=== PATIENT | female | born 1985 | race Caucasian/White ===

== ENCOUNTER 2018-06-12 18:28 | Emergency (ER) | payer MEDICAID ==
[~2018-06-12] VITALS: Ht 152.4 cm; Wt 47.6 kg
[~2018-06-12 18:28] MED LIST: HYDR25CA5 PO; MTP25TSR PO
--- OUTSIDE RECORDS SUMMARY | 2018-06-12 18:32 | XMS REPORT | Continuity of Care Document ---
Author Organization Unknown Address Unknown Allergies Active Description Code Type Severity Reaction Onset Reported/Identified Relationship to Patient Clinical Status Yes aspirin Drug Allergy 03/19/2012 Yes penicillins Drug Allergy 03/19/2012 Yes pertusis vacine Drug Allergy 03/19/2012 Medications There is no data. Problems Date Dx Coded Attending Type Code Diagnosis Diagnosed By 03/19/2012 300.00 anxiety 03/19/2012 381.81 EUSTACHIAN TUBE DYSFUNCTION 03/19/2012 625.3 DYSMENORRHEA 03/19/2012 782.1 skin: a rash [as Sx] 03/19/2012 300.00 anxiety 03/19/2012 381.81 EUSTACHIAN TUBE DYSFUNCTION 03/19/2012 625.3 DYSMENORRHEA 03/19/2012 782.1 skin: a rash [as Sx] 03/19/2012 300.00 anxiety 03/19/2012 381.81 EUSTACHIAN TUBE DYSFUNCTION 03/19/2012 625.3 DYSMENORRHEA 03/19/2012 782.1 skin: a rash [as Sx] 03/19/2012 EVELIA KELLY MD 300.00 anxiety 03/19/2012 EVELIA KELLY MD 381.81 EUSTACHIAN TUBE DYSFUNCTION 03/19/2012 EVELIA KELLY MD 625.3 DYSMENORRHEA 03/19/2012 EVELIA KELLY MD 782.1 skin: a rash [as Sx] 06/09/2012 524.62 TMJ pain 06/09/2012 745.5 PATENT FORAMEN OVALE 06/09/2012 784.0 headache 06/09/2012 524.62 TMJ pain 06/09/2012 745.5 PATENT FORAMEN OVALE 06/09/2012 784.0 headache 06/09/2012 EVELIA KELLY MD 524.62 TMJ pain 06/09/2012 EVELIA KELLY MD 745.5 PATENT FORAMEN OVALE 06/09/2012 EVELIA KELLY MD 784.0 headache 08/13/2012 216.9 BENIGN NEOPLASM OF SKIN SITE UNSPECIFIED 08/13/2012 719.41 PAIN IN JOINT INVOLVING SHOULDER REGION 08/13/2012 EVELIA KELLY MD 216.9 BENIGN NEOPLASM OF SKIN SITE UNSPECIFIED 08/13/2012 EVELIA KELLY MD 719.41 PAIN IN JOINT INVOLVING SHOULDER REGION 09/10/2012 EVELIA KELLY MD 787.91 DIARRHEA 09/16/2012 EVELIA KELLY MD 536.8 DYSPEPSIA AND OTHER SPECIFIED DISORDERS OF FUNCTION OF STOMACH Procedures There is no data. Results There is no data. Encounters ACCT No. Visit Date/Time Discharge Status Pt. Type Provider Facility Loc./Unit Complaint [id number] 09/16/2012 16:22:00 09/16/2012 23:59:59 [facility] Outpatient EVELIA KELLY MD [id number] 03/19/2012 09:35:00 03/19/2012 23:59:59 [facility] Outpatient [id number] 08/13/2012 10:07:00 Document Registration [id number] 06/09/2012 09:21:00 Document Registration
--- NOTE | 2018-06-12 18:53 | ED Integumentary General ---
General Chief Complaint: Skin/Wound Problems Stated Complaint: RECEIVING VAC Source: patient History of Present Illness Date Seen by Provider: Jun 12, 2018 Time Seen by Provider: 18:53 Initial Comments 33 yo F presenting from home for a tetanus and diphtheria booster. She states as a child she had a reaction to pertussis component of vaccination so she can not take it. She had a locust thorn go through her shoe and into her toe this afternoon. She called her doctor's office and they recommended she get an updated booster since she was only a few months short of 10 years since last shot. She called around and the ER here was one of the few locations that had the DT only vaccination. She states she already had cleaned the wound on her toe and refused to have it looked at. She states she just needs the vaccination booster only and she will be good to go home. She denies any other complaints. No Fever, chills, nausea, vomiting, abdominal pain, headache, numbness, weakness. Allergies and Home Medications Allergies Coded Allergies: Aspirin (Unverified Allergy, Mild, RASH, 11/26/09) Amoxicillin (Unverified Allergy, Unknown, 11/26/09) Home Medications Hydroxyzine Pamoate 25 Mg Capsule, 25 MG PO Q6H FOR ANXIETY Prescribed by: JEANNE ROCA on 11/27/09 0037 Metoprolol Succinate 25 Mg Tab, 12.5 MG PO DAILY, (Reported) Patient Home Medication List Home Medication List Reviewed: Yes Review of Systems Review of Systems Constitutional: no symptoms reported EENTM: no symptoms reported Respiratory: no symptoms reported Cardiovascular: no symptoms reported Gastrointestinal: no symptoms reported Musculoskeletal: see HPI Skin: see HPI Past Kcrayfm-Kyntlc-Vejbsm Hx Past Med/Social Hx: Reviewed Nursing Past Med/Soc Hx Patient Social History Recent Foreign Travel: No Contact w/Someone Who Travel: No Physical Exam Vital Signs Vital Signs - First Documented 06/12/18 06/12/18 18:50 19:28 Temp 97.7 Pulse 95 Resp 18 B/P (MAP) 118/78 (91) Pulse Ox 100 O2 Delivery Room Air Capillary Refill : General Appearance: WD/WN, no apparent distress Neurologic/Psychiatric: alert, normal mood/affect, oriented x 3 Skin: other (pt refused stating she did not feel it was necessary to look at her puncture wound) Progress/Results/Core Measures Results/Orders My Orders Orders - JYOTI KUMAR MD Tetanus/Diphtheria Inj (Adult) (Tenivac (06/12/18 19:00) Medications Given in ED Current Medications Medications Dose Ordered Sig/Chris Route Start Time Stop Time Status Last Admin Dose Admin Tetanus/ Diphtheria Toxoids 0.5 ml ONCE ONCE IM 06/12/18 19:00 06/12/18 19:01 DC 06/12/18 19:13 0.5 ML Vital Signs/I&O 06/12/18 06/12/18 18:50 19:28 Temp 97.7 Pulse 95 82 Resp 18 12 B/P (MAP) 118/78 (91) 111/70 (84) Pulse Ox 100 O2 Delivery Room Air Room Air Progress Progress Note : Progress Note Patient appeared to be in no distress and declined exam of wound as she states she just needs her tetanus diphtheria booster per her doctor office and then she will go. vaccination was ordered and counseled on general wound care and return precautions. Departure Impression Primary Impression: Puncture wound of foot without foreign body Qualified Codes: S91.339A - Puncture wound without foreign body, unspecified foot, initial encounter Additional Impression: Need for vaccine for Td (tetanus-diphtheria) Disposition: HOME, SELF-CARE Condition: Stable Departure-Patient Inst. Decision time for Depature: 19:15 Referrals: PREM ALBERT MD (PCP/Family) Primary Care Physician Patient Instructions: Diphtheria and Tetanus Toxoids, Wound Care (DC) Add. Discharge Instructions: Follow up with your doctor as needed. Check back for further concerns for infection if having problems with your puncture wound on your foot. All discharge instructions reviewed with patient and/or family. Voiced understanding. JYOTI KUMAR MD Jun 12, 2018 18:53
[2018-06-12] MEDS ORDERED: TETANUS & DIPHTHERIA TOX,ADULT 0.5 ML (TENIVAC) IM ONE (19:00)
[2018-06-12 19:28] VITALS: BP 111/70
== END 2018-06-12 19:28 | disposition home or self-care (01) ==
LOC: EDUNIT# 18:28 → ER FS 18:29
DX: S91.339A Puncture wound without foreign body, unspecified foot, initial encounter (principal); Z88.6 Allergy status to analgesic agent; Z88.0 Allergy status to penicillin; Z23 Encounter for immunization; X58.XXXA Exposure to other specified factors, initial encounter
CPT/HCPCS: 90714; 99284

== ENCOUNTER 2018-07-23 02:18 | Emergency (ER) | payer MEDICAID ==
[~2018-07-23] VITALS: Ht 152.4 cm; Wt 49.0 kg
--- OUTSIDE RECORDS SUMMARY | 2018-07-23 02:22 | XMS REPORT ---
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, Active 861931577 Problem Lactose intolerance E73.9 Active 756802480 Problem Tachycardia R00.0 May, Active 7520015 Problem Palpitation R00.2 Active 95731012 Problem 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 July, Active 61065020 Problem Family history of connective tissue disease Z82.69 July, Active Problem SVT (supraventricular tachycardia) I47.1 May, Active 8911243 Problem PFO (patent foramen ovale) Q21.1 July, Active 067546488 ALLERGIES No Information ENCOUNTERS Encounter Location Date Diagnosis [address] [address] May, Celiac disease K90.0 and Anxiety disorder F41.9 [facility] [address] [place] [address] Jan, [facility] [id number] [place] [address] Jan, [facility] [id number] [place] [address] Jan, [facility] [id number] [place] [address] Jan, [facility] [id number] [place] [address] Jan, [facility] [id number] [place] [address] Jan, [facility] [address] [facility] [id number] [address] Jun, [facility] [address] [facility] [id number] [address] Jun, [facility] [address] [facility] [id number] [address] Dec, [facility] [address] [facility] [id number] [place] [address] Nov, [facility] [address] [facility] [id number] [address] Aug, [facility] [address] [facility] [id number] [address] Aug, [facility] [address] [place] [address] Aug, [facility] [address] [place] [address] Aug, [facility] [id number] [address] July, [facility] [address] [place] [address] Jun, [facility] [id number] [address] Mar, IMMUNIZATIONS No Known Immunizations SOCIAL HISTORY Never Assessed REASON FOR VISIT [facility] [place] PLAN OF CARE VITAL SIGNS MEDICATIONS Unknown Medications RESULTS No Results PROCEDURES No Known procedures INSTRUCTIONS MEDICATIONS ADMINISTERED No Known Medications MEDICAL (GENERAL) HISTORY Type Description Date Medical History Celiac disease Medical History Palpitation Medical History Anxiety disorder Medical History Tachycardia Medical History Lactose intolerance Medical History PFO (patent foramen ovale) Medical History SVT (supraventricular tachycardia) Medical History Family history of connective tissue disease Medical History Atypical migraine Medical History Left ventricular noncompaction Surgical History tonsillectomy and adenoidectomy
--- OUTSIDE RECORDS SUMMARY | 2018-07-23 02:22 | XMS REPORT ---
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, Active 285822970 Problem Lactose intolerance E73.9 Active 680492373 Problem Tachycardia R00.0 May, Active 5622046 Problem Palpitation R00.2 Active 00168971 Problem 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 July, Active 12873195 Problem Family history of connective tissue disease Z82.69 July, Active Problem SVT (supraventricular tachycardia) I47.1 May, Active 4680036 Problem PFO (patent foramen ovale) Q21.1 July, Active 998910267 ALLERGIES No Information ENCOUNTERS Encounter Location Date Diagnosis [address] [address] May, Celiac disease K90.0 and Anxiety disorder F41.9 [facility] [address] [place] [address] Jan, [facility] [id number] [place] [address] Jan, [facility] [id number] [place] [address] Jan, [facility] [id number] [place] [address] Jan, [facility] [id number] [place] [address] Jan, [facility] [id number] [place] [address] Jan, [facility] [address] [facility] [id number] [address] Jun, [facility] [address] [facility] [id number], [place] [address] Jun, [facility] [address] [facility] [id number], [place] [address] Dec, [facility] [address] [facility] [id number], [place] [address] Nov, [facility] [address] [facility] [id number], [place] [address] Aug, [facility] [address] [facility] [id number], [place] [address] Aug, [facility] [address] [address] Aug, [facility] [address], [place] [address] Aug, [facility] [id number], [place] [address] July, [facility] [address] [address] Jun, [facility] [id number], [place] [address] Mar, IMMUNIZATIONS No Known Immunizations SOCIAL HISTORY Never Assessed REASON FOR VISIT [facility] [place] [place] PLAN OF CARE VITAL SIGNS MEDICATIONS Unknown [...]
--- OUTSIDE RECORDS SUMMARY | 2018-07-23 02:22 | XMS REPORT | Continuity of Care Document ---
[...] Status Pt. Type Provider Facility Loc./Unit Complaint [id number] 09/16/2012 16:22:00 09/16/2012 23:59:59 [facility] Outpatient EVELIA KELLY MD [id number] 03/19/2012 09:35:00 03/19/2012 23:59:59 [facility] Outpatient [id number] 08/13/2012 10:07:00 Document Registration [id number] 06/09/2012 09:21:00 Document Registration
[2018-07-23] MEDS ORDERED: NS IV 1000 ML 1,000 ML IV ONE (02:40)
[2018-07-23 03:13] LABS: HEMOGLOBIN 13.3 G/DL (11.5-16.0); MEAN CORPUSCULAR HEMOGLOBIN 28 PG (25-34); WHITE BLOOD COUNT 4.6 10^3/uL (4.3-11.0)
[2018-07-23 03:14] LABS: BASOPHILS % (AUTO) 0 % (0-10); EOSINOPHILS % (AUTO) 1 % (0-10); HEMATOCRIT 41 % (35-52); LYMPHOCYTES % (AUTO) 8 % (12-44); MEAN CORPUSCULAR HGB CONC 32 G/DL (32-36); MEAN CORPUSCULAR VOLUME 87 FL (80-99); MEAN PLATELET VOLUME 10.1 FL (7.4-10.4); MONOCYTES % (AUTO) 5 % (0-12); NEUTROPHILS % (AUTO) 85 % (42-75); PLATELET COUNT 167 10^3/uL (130-400); RED CELL DISTRIBUTION WIDTH 11.9 % (10.0-14.5)
[2018-07-23 03:15] LABS: LYMPHOCYTES # (AUTO) 0.4 X 10^3 (1.0-4.0); MONOCYTES # (AUTO) 0.3 X 10^3 (0.0-1.0); NEUTROPHILS # (AUTO) 3.9 X 10^3 (1.8-7.8)
[2018-07-23 03:25] LABS: CLARITY,URINE CLEAR; COLOR,URINE YELLOW; GLUCOSE, URINE (UA) NEGATIVE (NEGATIVE); KETONES,URINE TRACE (NEGATIVE); NITRITE,URINE NEGATIVE (NEGATIVE); PROTEIN,URINE NEGATIVE (NEGATIVE)
[2018-07-23 03:26] LABS: BACTERIA,URINE TRACE /HPF; BILIRUBIN,URINE NEGATIVE (NEGATIVE); LEUKOCYTE ESTERASE ,URINE NEGATIVE (NEGATIVE); SQUAMOUS EPITHELIAL CELL,UR 0-2 /HPF; UROBILINOGEN,URINE 0.2 MG/DL (NORMAL); WBC,URINE RARE /HPF
[2018-07-23 03:43] LABS: BAND NEUTROPHILS 12 %; BASOPHILS % (MANUAL) 1 %; EOSINOPHILS % (MANUAL) 0 %; LYMPHOCYTES % (MANUAL) 6 %; MONOCYTES % (MANUAL) 2 %; NEUTROPHILS % (MANUAL) 79 %
[2018-07-23 03:54] LABS: BUN/CREATININE RATIO 22; CALCIUM 8.6 MG/DL (8.5-10.1); CARBON DIOXIDE 18 MMOL/L (21-32); CHLORIDE 101 MMOL/L (98-107); CREATININE SERUM 0.64 MG/DL (0.60-1.30); GFR ESTIMATED > 60; GLUCOSE 113 MG/DL (70-105); MAGNESIUM 1.7 MG/DL (1.8-2.4); SODIUM 138 MMOL/L (135-145)
[2018-07-23 03:55] LABS: ALANINE AMINOTRANSFERASE 17 U/L (0-55); ALBUMIN 4.7 GM/DL (3.2-4.5); ALKALINE PHOSPHATASE 60 U/L (40-136); BILIRUBIN,TOTAL 0.4 MG/DL (0.1-1.0); LIPASE 30 U/L (8-78); TOTAL PROTEIN 6.9 GM/DL (6.4-8.2)
--- NOTE | 2018-07-23 04:01 | ED Abdominal Pain ---
General Chief Complaint: Abdominal/GI Problems Stated Complaint: DIGESTIVE PROBLEMS Nursing Triage Note: PT. REPORTED THAT HER SKIN ON HER BACK AND LEGS WERE HURTING THAT IT STARTED YESTERDAY AND TONIGHT SHE WAS RUNNING A LOW GRADE TEMP. SHE C/O ABD PAIN, CRAMPING NAUSEA, DIARREHA AND BLOOD IN HER STOOL. PT. REPORTED 5 DAYS AGO SHE HAD BLOOD IN HER STOOL BUT HAD BEEN CONSTIPATED. SHE ALSO C/O BURPING. Sepsis Screen: No Definite Risk Source of Information: Patient Exam Limitations: No Limitations History of Present Illness Date Seen by Provider: July 23, 2018 Time Seen by Provider: 02:28 Initial Comments This 33-year-old young lady presents to the emergency room with complaints of abdominal discomfort and cramping accompanied by excessive belching, frequent stools, and blood streaking in her stools. Temperature has been elevated today but less than 100. Symptoms started yesterday. She states the skin on her legs and her back felt painful yesterday as well. She has had a small amount of diarrhea with her frequent stools. She is nauseated but has not vomited. Her cramping and discomfort worsens with bowel movements. She does have celiac disease but states she is currently compliant with a gluten-free diet. She is afebrile at present. She denies and denies sexual activity. Patient has had exposure to flood lee and cattle in recent days. Allergies and Home Medications Allergies Coded Allergies: Aspirin (Unverified Allergy, Mild, RASH, 11/26/09) Amoxicillin (Unverified Allergy, Unknown, 11/26/09) Home Medications Hydroxyzine Pamoate 25 Mg Capsule, 25 MG PO Q6H FOR ANXIETY Prescribed by: JEANNE ROCA on 11/27/09 0037 Metoprolol Succinate 25 Mg Tab, 12.5 MG PO DAILY, (Reported) Patient Home Medication List Home Medication List Reviewed: Yes Review of Systems Review of Systems Constitutional: no symptoms reported EENTM: No Symptoms Reported Respiratory: No Symptoms Reported Cardiovascular: No Symptoms Reported Gastrointestinal: See HPI Genitourinary: No Symptoms Reported Musculoskeletal: no symptoms reported Skin: see HPI Psychiatric/Neurological: No Symptoms Reported Endocrine: No Symptoms Reported Hematologic/Lymphatic: No Symptoms Reported Past Xzcqcts-Kgaeik-Hjvsjr Hx Past Med/Social Hx: Reviewed and Corrections made Patient Social History 2nd Hand Smoke Exposure: No Recent Foreign Travel: No Contact w/Someone Who Travel: No Recent Infectious Disease Expo: No Recent Hopitalizations: No Physical Abuse: No Sexual Abuse: No Mistreated: No Fear: No Seasonal Allergies Seasonal Allergies: No Past Medical History Surgeries: Yes (wisdom teeth) Tonsillectomy Respiratory: No Cardiac: No Neurological: No : No Last Menstrual Period: July 22, 2018 Genitourinary: No Gastrointestinal: Yes (celiac disease) Hemorrhoids Musculoskeletal: No Endocrine: No HEENT: No Cancer: No Psychosocial: Yes Anxiety Integumentary: No Blood Disorders: No Physical Exam Vital Signs Vital Signs - First Documented 07/23/18 02:26 Temp 99.3 Pulse 109 Resp 16 B/P (MAP) 125/78 (94) Pulse Ox 98 O2 Delivery Room Air Capillary Refill : Less Than 3 Seconds Height/Weight/BMI Height: 5'0" Weight: 108lbs. oz. 48.638068ek; BMI Method:Stated General Appearance: WD/WN, no apparent distress HEENT: PERRL/EOMI, normal ENT inspection, pharynx normal Neck: normal inspection Respiratory: lungs clear, normal breath sounds, no respiratory distress, no accessory muscle use Cardiovascular: no edema, no murmur, tachycardia Gastrointestinal: normal bowel sounds, non tender, soft Rectal: normal exam, normal rectal tone; No hemorrhoids, No mass, No t enderness; other (no stool was present on FARSHAD for Hemoccult testing.) Extremities: normal inspection, no pedal edema Neurologic/Psychiatric: superintendent electric power II-XII nml as tested, no motor/sensory deficits, alert, normal mood/affect, oriented x 3 Skin: normal color, warm/dry Progress/Results/Core Measures Results/Orders Lab Results Laboratory Tests Test 07/23/18 02:54 07/23/18 03:00 Range/Units White Blood Count 4.6 4.3-11.0 10^3/uL Red Blood Count 4.72 4.35-5.85 10^6/uL Hemoglobin 13.3 11.5-16.0 G/DL Hematocrit 41 35-52 % Mean Corpuscular Volume 87 80-99 FL Mean Corpuscular Hemoglobin 28 25-34 PG Mean Corpuscular Hemoglobin Concent 32 32-36 G/DL Red Cell Distribution Width 11.9 10.0-14.5 % Platelet Count 167 130-400 10^3/uL Mean Platelet Volume 10.1 7.4-10.4 FL Neutrophils (%) (Auto) 85 H 42-75 % Lymphocytes (%) (Auto) 8 L 12-44 % Monocytes (%) (Auto) 5 0-12 % Eosinophils (%) (Auto) 1 0-10 % Basophils (%) (Auto) 0 0-10 % Neutrophils # (Auto) 3.9 1.8-7.8 X 10^3 Lymphocytes # (Auto) 0.4 L 1.0-4.0 X 10^3 Monocytes # (Auto) 0.3 0.0-1.0 X 10^3 Eosinophils # (Auto) 0.0 0.0-0.3 10^3/uL Basophils # (Auto) 0.0 0.0-0.1 10^3/uL Neutrophils % (Manual) 79 % Lymphocytes % (Manual) 6 % Monocytes % (Manual) 2 % Eosinophils % (Manual) 0 % Basophils % (Manual) 1 % Band Neutrophils 12 % Sodium Level 138 135-145 MMOL/L Potassium Level 4.0 3.6-5.0 MMOL/L Chloride Level 101 98-107 MMOL/L Carbon Dioxide Level 18 L 21-32 MMOL/L Anion Gap 19 H 5-14 MMOL/L Blood Urea Nitrogen 14 7-18 MG/DL Creatinine 0.64 0.60-1.30 MG/DL Estimat Glomerular Filtration Rate > 60 BUN/Creatinine Ratio 22 Glucose Level 113 H 70-105 MG/DL Calcium Level 8.6 8.5-10.1 MG/DL Corrected Calcium 8.5-10.1 MG/DL Magnesium Level 1.7 L 1.8-2.4 MG/DL Total Bilirubin 0.4 0.1-1.0 MG/DL Aspartate Amino Transf (AST/SGOT) 16 5-34 U/L Alanine Aminotransferase (ALT/SGPT) 17 0-55 U/L Alkaline Phosphatase 60 40-136 U/L Total Protein 6.9 6.4-8.2 GM/DL Albumin 4.7 H 3.2-4.5 GM/DL Lipase 30 8-78 U/L Serum Test, Qualitative NEGATIVE NEGATIVE Urine Color YELLOW Urine Clarity CLEAR Urine pH 6.0 5-9 Urine Specific [place] 1.010 L 1.016-1.022 Urine Protein NEGATIVE NEGATIVE Urine Glucose (UA) NEGATIVE NEGATIVE Urine Ketones TRACE H NEGATIVE Urine Nitrite NEGATIVE NEGATIVE Urine Bilirubin NEGATIVE NEGATIVE Urine Urobilinogen 0.2 NORMAL MG/DL Urine Leukocyte Esterase NEGATIVE NEGATIVE Urine RBC (Auto) NEGATIVE NEGATIVE Urine RBC NONE /HPF Urine WBC RARE /HPF Urine Squamous Epithelial Cells 0-2 /HPF Urine Crystals NONE /LPF Urine Bacteria TRACE /HPF Urine Casts NONE /LPF Urine Mucus NONE /LPF Urine Culture Indicated NO My Orders Orders - DAFNE LUNA MD Cbc With Automated Diff (07/23/18 02:39) Comprehensive Metabolic Panel (07/23/18 02:39) Hcg,Qualitative Serum (07/23/18 02:39) Lipase (07/23/18 02:39) Magnesium (07/23/18 02:39) Ua Culture If Indicated (07/23/18 02:39) Ed Iv/Invasive Line Start (07/23/18 02:39) Ns Iv 1000 Ml (Sodium Chloride 0.9%) (07/23/18 02:40) Manual Differential (07/23/18 02:54) Medications Given in ED Current Medications Medications Dose Ordered Sig/Chris Route Start Time Stop Time Status Last Admin Dose Admin Sodium Chloride 1,000 ml @ 0 mls/hr Q0M ONCE IV 07/23/18 02:40 07/23/18 02:42 DC 07/23/18 02:40 1,000 MLS/HR Vital Signs/I&O 07/23/18 02:26 Temp 99.3 Pulse 109 Resp 16 B/P (MAP) 125/78 (94) Pulse Ox 98 O2 Delivery Room Air Blood Pressure Mean: 94 Progress Progress Note : Progress Note Patient declined medications to treat pain, cramping, and nausea. She did however want IV fluids. A liter of IV normal saline was administered. Rectal exam revealed no hemorrhoids, fissures, or evidence of bleeding. Departure Impression Primary Impression: Abdominal cramping Additional Impressions: Nausea Hematochezia Disposition: 01 HOME, SELF-CARE Condition: Improved Departure-Patient Inst. Decision time for Depature: 04:05 Referrals: SELFALIS MD (PCP) Primary Care Physician Patient Instructions: Bloody Stools, Adult (DC) Add. Discharge Instructions: Follow-up with your primary care provider within the next 1-2 weeks. Call the office this morning for an appointment. Discuss stool cultures and/or colonoscopy. Use the Zofran (ondansetron) dissolved under your tongue every 4 hours as needed for nausea and vomiting. You may take Tylenol (acetaminophen) up to 650 mg every 6 hours as needed for pain. Return to the emergency room if you have worsening symptoms. All discharge instructions reviewed with patient and/or family. Voiced understanding. Copy Copies To 1: SELF,DAFNE SHARP MD, MD July 23, 2018 04:01
[2018-07-23] MEDS ORDERED: RX-ONDANSETRON 4 MG ODT (ZOFRAN) PPK #4 SL STA (04:09)
[2018-07-23 04:20] VITALS: BP 120/76
== END 2018-07-23 04:28 | disposition home or self-care (01) ==
LOC: EDUNIT# 02:18 → ER FS 02:20
DX: K92.1 Melena (principal); R11.0 Nausea; F41.9 Anxiety disorder, unspecified; Z88.6 Allergy status to analgesic agent; Z88.1 Allergy status to other antibiotic agents; Z90.89 Acquired absence of other organs
CPT/HCPCS: 36415; 80053; 81000; 83690; 83735; 84703; 85007; 85027; 96360

== ENCOUNTER 2019-02-07 01:56 | Emergency (ER) | payer MEDICAID ==
[~2019-02-07] VITALS: Ht 154 cm; Wt 54.2 kg
--- NOTE | 2019-02-07 02:34 | ED EENT ---
History of Present Illness General Chief Complaint: Oral/Throat Problems Stated Complaint: SORE THROAT Nursing Triage Note: PT COMPLAINING OF A SORE THROAT THAT STARTED YESTERDAY History of Present Illness Date Seen by Provider: Feb 07, 2019 Time Seen by Provider: 02:33 Initial Comments as above ST started yesterday no fever, no congestion or cough no earache also had left lower tooth pulled 2 d ago, site doing fine, on pain med prn Allergies and Home Medications Allergies Coded Allergies: aspirin (Unverified Allergy, Mild, RASH, 11/26/09) Pertussis Vaccines (Verified Allergy, Unknown, 07/23/18) amoxicillin (Unverified Allergy, Unknown, 11/26/09) nickel (Verified Allergy, Unknown, 07/23/18) Home Medications Hydroxyzine Pamoate 25 Mg Capsule, 25 MG PO Q6H FOR ANXIETY Prescribed by: JEANNE ROCA on 11/27/09 0037 Metoprolol Succinate 25 Mg Tab, 12.5 MG PO DAILY, (Reported) Patient Home Medication List Home Medication List Reviewed: Yes Review of Systems Review of Systems Constitutional: No fever Eyes: No Symptoms Reported Ears: No Symptoms Reported Nose: no symptoms reported Mouth: other (see HPI) Throat: painful swallowing Respiratory: no symptoms reported Gastrointestinal: no symptoms reported Past Hjzdtfm-Jnmtbm-Ekirxu Hx Patient Social History Alcohol Use: Denies Use Recreational Drug Use: No 2nd Hand Smoke Exposure: No Recent Foreign Travel: No Contact w/Someone Who Travel: No Recent Infectious Disease Expo: No Recent Hopitalizations: No Physical Abuse: No Sexual Abuse: No Mistreated: No Seasonal Allergies Seasonal Allergies: No Past Medical History Surgeries: Yes (wisdom teeth) Tonsillectomy Respiratory: No Cardiac: No Neurological: No Genitourinary: No Gastrointestinal: Yes (celiac disease) Hemorrhoids Musculoskeletal: No Endocrine: No HEENT: No Cancer: No Psychosocial: Yes Anxiety Integumentary: No Blood Disorders: No Physical Exam Vital Signs Vital Signs - First Documented 02/07/19 02:05 Temp 36.5 Pulse 91 Resp 16 B/P (MAP) 116/69 (85) Pulse Ox 99 O2 Delivery Room Air Height, Weight, BMI Height: 5'0" Weight: 108lbs. oz. 48.417089hp; 22.00 BMI Method:Stated General Appearance: WD/WN, other (no distress) Eyes: bilateral eye PERRL, bilateral eye EOMI Ears: bilateral ear TM normal Nose: normal inspection Mouth/Throat: pharynx normal, pharynx swelling (very minimal on R); No tonsillar swelling, No trismus, No uvula swelling; other (tooth extraction site looks fine) Neck: supple Cardiovascular: regular rate, rhythm Respiratory: lungs clear Gastrointestinal: non tender, soft Progress/Results/Core Measures Results/Orders Lab Results Laboratory Tests Test 02/07/19 02:06 Range/Units Group A Streptococcus Screen NEGATIVE NEGATIVE My Orders Orders - ESTELA AVALOS MD Rapid Strep A Screen (02/07/19 02:04) Rapid Strep A Screen (02/07/19 02:09) Vital Signs/I&O 02/07/19 02:05 Temp 36.5 Pulse 91 Resp 16 B/P (MAP) 116/69 (85) Pulse Ox 99 O2 Delivery Room Air Blood Pressure Mean: 85 POS Progress Progress Note : Progress Note strep neg Departure Impression Primary Impression: Pharyngitis Qualified Codes: J02.9 - Acute pharyngitis, unspecified Disposition: 01 HOME, SELF-CARE Condition: Stable Departure-Patient Inst. Decision time for Depature: 02:39 Referrals: ALIS MONREAL MD (PCP/Family) Primary Care Physician Patient Instructions: Viral Pharyngitis (DC) Scripts Prednisone (Prednisone) 20 Mg Tab 40 MG PO DAILY, #6 TAB 0 Refills Prov: ESTELA AVALOS MD 02/07/19 ESTELA AVAOLS MD Feb 07, 2019 02:34 POS
[2019-02-07] MEDS ORDERED: PRD20T PO (02:39)
[2019-02-07 02:42] VITALS: BP 116/69
--- OUTSIDE RECORDS SUMMARY | 2019-03-04 16:39 | XMS REPORT | Continuity of Care Document ---
Author Organization Unknown Address Unknown Phone Unavailable Allergies Active Description Code Type Severity Reaction Onset Reported/Identified Relationship to Patient Clinical Status Yes aspirin [id number] Drug Allergy Mild RASH 11/26/2009 Yes amoxicillin [id number] Drug Aller gy Unknown N/A 11/26/2009 Yes aspirin Drug Allergy 03/19/2012 Yes penicillins Drug Allergy 03/19/2012 Yes pertusis vacine Drug Allergy 03/19/2012 Yes nickel [id number] Drug Allergy Unknown N/A 07/23/2018 Yes Pertussis Vaccines [id number] Drug Allergy Unknown N/A 07/23/2018 Medications There is no data. Problems Date Dx Coded Attending Type Code Diagnosis Diagnosed By 03/19/2012 300.00 anxiety 03/19/2012 381.81 EUS TACHIAN TUBE DYSFUNCTION 03/19/2012 625.3 DYSM ENORRHEA 03/19/2012 782.1 skin : a rash [as Sx] 03/19/2012 300.00 anxiety 03/19/2012 381.81 EUS TACHIAN TUBE DYSFUNCTION 03/19/2012 625.3 DYSM ENORRHEA 03/19/2012 782.1 skin : a rash [as Sx] 03/19/2012 300.00 anxiety 03/19/2012 381.81 EUS TACHIAN TUBE DYSFUNCTION 03/19/2012 625.3 DYSM ENORRHEA 03/19/2012 782.1 skin : a rash [as Sx] 03/19/2012 EVELIA KELLY MD 300.00 anxiety 03/19/2012 EVELIA KELLY MD 381.81 EUSTACHIAN TUBE DYSFUNCTION 03/19/2012 EVELIA KELLY MD 625.3 DYSMENORRHEA 03/19/2012 EVELIA KELLY MD 782.1 skin: a rash [as Sx] 06/09/2012 524.62 TMJ pain 06/09/2012 745.5 [place] NT FORAMEN OVALE 06/09/2012 784.0 headache 06/09/2012 524.62 TMJ pain 06/09/2012 745.5 [place] NT FORAMEN OVALE 06/09/2012 784.0 headache 06/09/2012 EVELIA KELLY MD 524.62 TMJ pain 06/09/2012 EVELIA KELLY MD 745.5 PATENT FORAMEN OVALE 06/09/2012 EVELIA KELLY MD 784.0 headache 08/13/2012 216.9 SAMRA GN NEOPLASM OF SKIN SITE UNSPECIFIED 08/13/2012 719.41 [place] N IN JOINT INVOLVING SHOULDER REGION 08/13/2012 EVELIA KELLY MD 216.9 BENIGN NEOPLASM OF SKIN SITE UNSPECIFIED 08/13/2012 EVELIA KELLY MD 719.41 PAIN IN JOINT INVOLVING SHOULDER REGION 09/10/2012 EVELIA KELLY MD 787.91 DIARRHEA 09/16/2012 EVELIA KELLY MD 536.8 DYSPEPSIA AND OTHER SPECIFIED DISORDERS OF FUNCTION OF STOMACH 06/12/2018 JYOTI KUMAR MD, Ot S91.339A PUNCTURE WOUND WITHOUT FOREIGN BODY, UNS 06/12/2018 JYOTI KUMAR MD Ot X58.XXXA EXPOSURE TO OTHER SPECIFIED FACTORS, INI 06/12/2018 JYOTI KUMAR MD Ot Z23 ENCOUNTER FOR IMMUNIZATION 06/12/2018 JYOTI KUMAR MD Ot Z88.0 ALLERGY STATUS TO PENICILLIN 06/12/2018 JYOTI KUMAR MD, Ot Z88.6 ALLERGY STATUS TO ANALGESIC AGENT STATUS 06/16/2018 JYOTI KUMAR MD, Ot S91.339A PUNCTURE WOUND WITHOUT FOREIGN BODY, UNS 06/16/2018 JYOTI KUMAR MD Ot X58.XXXA EXPOSURE TO OTHER SPECIFIED FACTORS, INI 06/16/2018 JYOTI KUMAR MD Ot Z23 ENCOUNTER FOR IMMUNIZATION 06/16/2018 JYOTI KUMAR MD, Ot Z88.0 ALLERGY STATUS TO PENICILLIN 06/16/2018 JYOTI KUMAR MD Ot Z88.6 ALLERGY STATUS TO ANALGESIC AGENT STATUS 07/23/2018 DAFNE LUNA MD Ot F41.9 ANXIETY DISORDER, UNSPECIFIED 07/23/2018 DAFNE LUNA MD Ot K92.1 MELENA 07/23/2018 DAFNE LUNA MD Ot R10.9 UNSPECIFIED ABDOMINAL PAIN 07/23/2018 CHERYL LEVY, DAFNE T Ot R11.0 NAUSEA 07/23/2018 DAFNE LUNA MD T Ot Z88.1 ALLERGY STATUS TO OTHER ANTIBIOTIC AGENT 07/23/2018 CHERYL LEVY, DAFNE T Ot Z88.6 ALLERGY STATUS TO ANALGESIC AGENT STATUS 07/23/2018 DAFNE LUNA MD T Ot Z90.89 ACQUIRED ABSENCE OF OTHER ORGANS 07/28/2018 DAFNE LUNA MD T Ot F41.9 ANXIETY DISORDER, UNSPECIFIED 07/28/2018 DAFNE LUNA MD T Ot K92.1 MELENA 07/28/2018 DAFNE LUNA MD T Ot R10.9 UNSPECIFIED ABDOMINAL PAIN 07/28/2018 DAFNE LUNA MD T Ot R11.0 NAUSEA 07/28/2018 DAFNE LUNA MD T Ot Z88.1 ALLERGY STATUS TO OTHER ANTIBIOTIC AGENT 07/28/2018 DAFNE LUNA MD T Ot Z88.6 ALLERGY STATUS TO ANALGESIC AGENT STATUS 07/28/2018 DAFNE LUNA MD T Ot Z90.89 ACQUIRED ABSENCE OF OTHER ORGANS 07/30/2018 DAFNE LUNA MD T Ot F41.9 ANXIETY DISORDER, UNSPECIFIED 07/30/2018 CHERYL LEVY, DAFNE T Ot K92.1 MELENA 07/30/2018 DAFNE LUNA MD T Ot R10.9 UNSPECIFIED ABDOMINAL PAIN 07/30/2018 DAFNE LUNA MD T Ot R11.0 NAUSEA 07/30/2018 DAFNE LUNA MD T Ot Z88.1 ALLERGY STATUS TO OTHER ANTIBIOTIC AGENT 07/30/2018 DAFNE LUNA MD T Ot Z88.6 ALLERGY STATUS TO ANALGESIC AGENT STATUS 07/30/2018 DAFNE LUNA MD T Ot Z90.89 ACQUIRED ABSENCE OF OTHER ORGANS 02/10/2019 ESTELA AVALOS MD Ot F41. 9 ANXIETY DISORDER, UNSPECIFIED 02/10/2019 ESTELA AVALOS MD Ot J02. 9 ACUTE PHARYNGITIS, UNSPECIFIED 02/10/2019 ESTELA AVALOS MD Ot Z88. 0 ALLERGY STATUS TO PENICILLIN 02/10/2019 ESTELA AVALOS MD Ot Z88. 6 ALLERGY STATUS TO ANALGESIC AGENT STATUS 02/10/2019 ESTELA AVALOS MD Ot Z88. 7 ALLERGY STATUS TO SERUM AND VACCINE STAT 02/10/2019 ESTELA AVALOS MD Ot Z88. 8 ALLERGY STATUS TO OTH DRUG/MEDS/BIOL SUB 02/10/2019 ESTELA AVALOS MD, Ot Z90. 89 ACQUIRED ABSENCE OF OTHER ORGANS Procedures There is no data. Results Test Result Range Complete blood count (CBC) with automate d white blood cell (WBC) differential - 07/23/18 02:54 Blood leukocytes automated count (number/volume) 4.6 10*3/uL 4.3-11.0 Blood erythrocytes automated count (number/volume) 4.72 10*6/uL 4.35-5.85 Venous blood hemoglobin measurement (mass/volume) 13.3 g/dL 11.5-16.0 Blood hematocrit (volume fraction) 41 % 35-52 Automated erythrocyte mean corpuscular volume 87 [ foz_us] 80-99 Automated erythrocyte mean corpuscular h emoglobin (mass per erythrocyte) 28 pg 25-34 Automated erythrocyte mean corpuscular h emoglobin concentration measurement (mass/volume) 32 g/dL 32-36 Automated erythrocyte distribution width ratio 11. 9 % 10.0- 14.5 Automated blood platelet count (count/volume) 167 10*3/uL 130-400 Automated blood platelet mean volume measurement 10.1 [foz_us] 7.4-10.4 Automated blood neutrophils/100 leukocytes 85 % 42-75 Automated blood lymphocytes/100 leukocytes 8 % 12-44 Blood monocytes/100 leukocytes 5 % 0-12 Automated blood eosinophils/100 leukocytes 1 % 0-10 Automated blood basophils/100 leukocytes 0 % 0-10 Blood neutrophils automated count (number/volume) 3.9 10*3 1.8-7.8 Blood lymphocytes automated count (number/volume) 0.4 10*3 1.0-4.0 Blood monocytes automated count (number/volume) 0. 3 10*3 0.0-1.0 Automated eosinophil count 0.0 10*3/uL 0 .0-0.3 Automated blood basophil count (count/volume) 0.0 10*3/uL 0.0-0.1 Serum or plasma choriogonadotropin (preg kandy test) detection - 07/23/18 02:54 Serum or plasma choriogonadotropin ( test) de tection NEGATIVE NEGATIVE Blood manual differential performed dete ction - 07/23/18 02:54 Blood monocytes/100 leukocytes 2 % NRG Manual blood segmented neutrophils/100 leukocytes 79 % NRG Blood band neutrophils/100 leukocytes 12 % NRG Manual blood lymphocytes/100 leukocytes 6 % NRG Manual eosinophils/100 leukocytes in nose 0 % NRG Manual blood basophils/100 leukocytes 1 % NRG Comprehensive metabolic panel - 07/23/18 02:54 Serum or plasma sodium measurement (moles/volume) 138 mmol/L 135-145 Serum or plasma potassium measurement (moles/volume) 4.0 mmol/L 3.6-5.0 Serum or plasma chloride measurement (moles/volume) 101 mmol/L 98-107 Carbon dioxide 18 mmol/L 21-32 Serum or plasma anion gap determination (moles/volume) 19 mmol/L 5-14 Serum or plasma urea nitrogen measurement (mass/volume ) 14 mg/dL 7-18 Serum or plasma creatinine measurement (mass/volume) 0.64 mg/dL 0.60-1.30 Serum or plasma urea nitrogen/creatinine mass ratio 22 NRG Serum or plasma creatinine measurement w ith calculation of estimated glomerular filtration rate > NRG Serum or plasma glucose measurement (mass/volume) 113 mg/dL 70-105 Serum or plasma calcium measurement (mass/volume) 8.6 mg/dL 8.5-10.1 Serum or plasma total bilirubin measurement (mass/volu me) 0.4 mg/dL 0.1-1.0 Serum or plasma alkaline phosphatase stephanie surement (enzymatic activity/volume) 60 U/L 40-136 Serum or plasma aspartate aminotransfera se measurement (enzymatic activity/volume) 16 U/L 5-34 Serum or plasma alanine aminotransferase measurement (enzymatic activity/volume) 17 U/L 0-55 Serum or plasma protein measurement (mass/volume) 6.9 g/dL 6.4-8.2 Serum or plasma albumin measurement (mass/volume) 4.7 g/dL 3.2-4.5 Magnesium - 07/23/18 02:54 Magnesium 1.7 mg/dL 1.8-2.4 Lipase - 07/23/18 02:54 Lipase 30 U/L 8-78 Complete urinalysis with reflex to cultu re - 07/23/18 03:00 Urine color determination YELLOW NRG Urine clarity determination CLEAR NR G Urine pH measurement by test strip 6.0 5-9 Specific gravity of urine by test strip 1.010 1.016-1.022 Urine protein assay by test strip, semi-quantitative NEGATIVE NEGATIVE Urine glucose detection by automated test strip NE GATIVE NEGATIVE Erythrocytes detection in urine sediment by light micr oscopy NEGATIVE NEGATIVE Urine ketones detection by automated test strip TR GASTON NEGATIVE Urine nitrite detection by test strip NEGATIVE NEGATIVE Urine total bilirubin detection by test strip NEGA TIVE NEGATIVE Urine urobilinogen measurement by automated test strip (mass/volume) 0.2 mg/dL NORMAL Urine leukocyte esterase detection by dipstick NEG ATIVE NEGATIVE Automated urine sediment erythrocyte cou nt by microscopy (number/high power field) NONE NRG Automated urine sediment leukocyte count by microscopy (number/high power field) RARE NRG Bacteria detection in urine sediment by light microsco py TRACE NRG Squamous epithelial cells detection in u rine sediment by light microscopy 0-2 NRG Crystals detection in urine sediment by light microsco py NONE NRG Casts detection in urine sediment by light microscopy NONE NRG Mucus detection in urine sediment by light microscopy NONE NRG Complete urinalysis with reflex to culture NO NRG TSH w/ FREE T4 - 12/11/18 12:19 TSH 1.30 mIU/L NRG T4, FREE 1.1 ng/dL 0.8-1.8 LIPID PANEL - 12/11/18 12:19 CHOLESTEROL, TOTAL 163 mg/dL <200 HDL CHOLESTEROL 64 mg/dL >50 TRIGLYCERIDES 31 mg/dL <150 LDL-CHOLESTEROL 90 mg/dL (calc) NRG CHOL/HDLC RATIO 2.5 (calc) <5.0 NON HDL CHOLESTEROL 99 mg/dL (calc) <130 CMP - 12/11/18 12:19 GLUCOSE 84 mg/dL 65-99 UREA NITROGEN (BUN) 12 mg/dL 7-25 CREATININE 0.59 mg/dL 0.50-1.10 eGFR NON-AFR. ESTONIAN 119 mL/min/1.73m2 > OR = 60 eGFR 138 mL/min/1.73m2 > OR = 60 BUN/CREATININE RATIO NOT APPLICABLE (calc) 6-22 SODIUM 138 mmol/L 135-146 POTASSIUM 4.0 mmol/L 3.5-5.3 CHLORIDE 105 mmol/L 98-110 CARBON DIOXIDE 25 mmol/L 20-32 CALCIUM 9.7 mg/dL 8.6-10.2 PROTEIN, TOTAL 6.7 g/dL 6.1-8.1 ALBUMIN 4.5 g/dL 3.6-5.1 GLOBULIN 2.2 g/dL (calc) 1.9-3.7 ALBUMIN/GLOBULIN RATIO 2.0 (calc) 1.0-2. 5 BILIRUBIN, TOTAL 0.6 mg/dL 0.2-1.2 ALKALINE PHOSPHATASE 47 U/L 33-115 AST 15 U/L 10-30 ALT 15 U/L 6-29 CBC - 12/11/18 12:19 WHITE BLOOD CELL COUNT 4.2 Thousand/uL 3 .8-10.8 RED BLOOD CELL COUNT 4.90 Million/uL 3.8 0-5.10 HEMOGLOBIN 13.7 g/dL 11.7-15.5 HEMATOCRIT 42.7 % 35.0-45.0 MCV 87.1 fL 80.0-100.0 MCH 28.0 pg 27.0-33.0 MCHC 32.1 g/dL 32.0-36.0 RDW 11.8 % 11.0-15.0 PLATELET COUNT 193 Thousand/uL 140-400 MPV 10.6 fL 7.5-12.5 ABSOLUTE NEUTROPHILS 2596 cells/uL 1500- 7800 ABSOLUTE LYMPHOCYTES 1168 cells/uL 850-3 900 ABSOLUTE MONOCYTES 328 cells/uL 200-950 ABSOLUTE EOSINOPHILS 88 cells/uL 15-500 ABSOLUTE BASOPHILS 21 cells/uL 0-200 NEUTROPHILS 61.8 % NRG LYMPHOCYTES 27.8 % NRG MONOCYTES 7.8 % NRG EOSINOPHILS 2.1 % NRG BASOPHILS 0.5 % NRG Streptococcus pyogenes antigen detection - 02/07/19 02:06 Streptococcus pyogenes antigen detection NEGATIVE NEGATIVE Bacterial throat culture - 02/07/19 02:0 6 Bacterial throat culture NBS NRG Encounters ACCT No. Visit Date/Time Discharge Status Pt. Type Provider Facility Loc./Unit Complaint [id number] 09/16/2012 16:22:00 09/16/2012 23:59: 59 CLS Outpatient EVELIA KELLY MD [id number] 03/19/2012 09:35:00 03/19/2012 23:59: 59 CLS Outpatient [id number] 08/13/2012 10:07:00 Document Registration [id number] 06/09/2012 09:21:00 Document Registration [id number] 07/23/2018 14:15:00 07/23/2018 23:59:[address] [facility] Outpatient SELF, ALIS Bone [facility] [id number] 12/11/2018 12:15:00 Document Registration [id number] 02/07/2019 01:58:00 02:43:00 DIS Outpatient BAILEY LEVY, ESTELA [facility] SORE THROAT [id number] 07/23/2018 02:20:00 04:28:00 DIS Emergency CHERYL LEVY, DAFNE Grullon [facility] DIGESTIVE [facility]BL [facility] [id number] 06/12/2018 18:29:00 19:28:00 DIS Emergency JOSÉ LEVY, JYOTI Powell [facility] FS RECEIVING VAC
--- OUTSIDE RECORDS SUMMARY | 2019-03-04 16:39 | XMS REPORT ---
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 Dec, 016 Active 302044723 Problem Lactose intolerance E73.9 Active 222151198 Problem Tachycardia R00.0 May, Active 80513 08 Problem Palpitation R00.2 Active 64674784 Problem 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 July, Active 55974290 Problem Family history of connective tissue disease Z82 .69 July, Active Problem SVT (supraventricular tachycardia) I47.1 r, 2015 Active 0769011 Problem PFO (patent foramen ovale) Q21.1 July, Active 069569853 ALLERGIES Substance Reaction Event Type Date Status Aspirin Unknown Drug Allergy Jun, Active Penicillins Unknown Non Drug Allergy Jun, Active Pertusis Vacine Unknown Non Drug Allergy Jun, Active ENCOUNTERS Encounter Location Date Diagnosis [address] [address] July, Gastroenteritis K52.[address] [address] May, Celiac disease K90.0 and Anxiety disorde r F41.9 [facility] [address] [facility] [id number] [address] [place] [phone] Jan, [facility] [address] [facility] [id number] [address] [place] [phone] Jan, [facility] [address] [facility] [id number] [address] [place] [phone] Jan, [facility] [address] [id number] [address] [place] [phone] Jan, [facility] [address] [id number] [address] [place] [phone] Jan, [facility] [address] [id number] [address] [place] [phone] Jan, [facility] [address] [id number] [address] [place] [phone] Jun, [facility] [address] [id number] [address] [place] [phone] Jun, [facility] [address] [id number] [address] [place] [phone] Dec, [facility] [address] [id number] [address] [place] [phone] Nov, [facility] [address] [id number] [address] [place] [phone] Aug, [facility] [address] [id number] [address] [place] [phone] Aug, [facility] [address] [id number] [address] [place] [phone] Aug, [facility] [address] [id number] [address] [place] [phone] Aug, [facility] [address] [id number] [address] [place] [phone] July, [facility] [address] [id number] [address] [place] [phone] Jun, [facility] [address] [id number] [address] [place] [phone] Mar, IMMUNIZATIONS No Known Immunizations SOCIAL HISTORY Never Assessed REASON FOR VISIT EMR-[facility] PLAN OF CARE VITAL SIGNS MEDICATIONS Medication Instructions Dosage Frequency Start Date End Date Duration S tatus Clorazepate Dipotassium 3.75 mg take 1 t ablet by Oral route 1 time per day 1 to 2 tabs as needed Aug, Active Keflex 500 mg take 1 capsule (500 mg) by oral route every 6 hours for 10 days Dec, Active RESULTS No Results PROCEDURES No Known procedures INSTRUCTIONS MEDICATIONS ADMINISTERED No Known Medications MEDICAL (GENERAL) HISTORY Type Description Date Medical History Celiac disease Medical History Palpitation Medical History Anxiety disorder Medical History Tachycardia Medical History Lactose intolerance Medical History PFO (patent foramen ovale) Medical History SVT (supraventricular tachycardia) Medical History Family history of connective tissue dise ase Medical History Atypical migraine Medical History Left ventricular noncompaction Surgical History tonsillectomy and adenoidectomy
== END 2019-02-07 02:43 | disposition home or self-care (01) ==
LOC: EDUNIT# 01:56 → ER FS 01:58
DX: J02.9 Acute pharyngitis, unspecified (principal); F41.9 Anxiety disorder, unspecified; Z88.6 Allergy status to analgesic agent; Z88.7 Allergy status to serum and vaccine; Z88.0 Allergy status to penicillin; Z88.8 Allergy status to other drugs, medicaments and biological substances; Z90.89 Acquired absence of other organs
CPT/HCPCS: 87430; 99284